=== PATIENT | male | born 1955 | race Caucasian/White ===

== ENCOUNTER 2019-02-12 06:46 | Day surgery (SDC) | payer OTHER ==
[~2019-02-12] VITALS: Ht 167.6 cm; Wt 64.9 kg
[~2019-02-12 06:46] MED LIST: ALPR1 PO; LISI20 PO; METO50 PO
--- NOTE | 2019-02-12 11:13 | NUR ---
PATIENT EDUCATED TO TAKE HIS BLOOD PRESSURE TONIGHT PER DR MEDELLIN AND RESUME B/P MEDICATIONS PRESCRIBED. PATIENT STATES UNDERSTANDING ABOUT WHEN TO BE RE-EVALUATED OR SEEN IN ER.
== END 2019-02-12 11:15 | disposition home or self-care (01) ==
LOC: ORSCMMR 06:46 → ORD 08:45 → ORSCMMR 11:15
PROVIDERS: Surgery
PROC: 05HM33Z Insertion of Infusion Device into Right Internal Jugular Vein, Percutaneous Approach (ICD-10-PCS; principal; 2019-02-12 08:45)
PROC: B5131ZA Fluoroscopy of Right Jugular Veins using Low Osmolar Contrast, Guidance (ICD-10-PCS; principal; 2019-02-12 08:45)
DX: C20 Malignant neoplasm of rectum (principal); I10 Essential (primary) hypertension; F17.210 Nicotine dependence, cigarettes, uncomplicated; Z79.899 Other long term (current) drug therapy
CPT/HCPCS: 77001; 82947; C1788; J0690; J1100; J1642; J2250; J2405; J2704; J3010; J7120

== ENCOUNTER 2019-02-14 10:34 | Day surgery (SDC) | payer OTHER | END 2019-02-14 22:40 | disposition home or self-care (01) | LOC: US 10:34 | DX: J90 Pleural effusion, not elsewhere classified (principal); C20 Malignant neoplasm of rectum | CPT/HCPCS: 76604 ==

== ENCOUNTER 2019-03-01 08:09 | Day surgery (SDC) | payer OTHER ==
--- NOTE | 2019-03-01 10:23 | NUR ---
DAY SURGERY RN | PATIENT INTO DAY SURGERY BLOOD PRESSURE IS HIGH. THIS "IS NORMAL AFTER PROCEDURES" PER PATIENT AND FAMILY. DENIES PAIN, NAUSEA, OR SYMPTOMATIC ISSUES. A/O. SITE C/D/I. DENIES DIFFICULTY BREATHING. LUNG SOUNDS CLEAR.
--- NOTE | 2019-03-01 12:00 | NUR ---
"DAY SURGERY RN | DISHCARGED VSS. A/O. DENIES PAIN AND NAUSEA. SITE C/D/I. DISCHARGE INSTRUCTIONS GIVEN. NO ISSUES. PATIENT WALKED SELF OUT."
== END 2019-03-01 23:31 | disposition home or self-care (01) ==
LOC: CT 08:09
DX: J84.10 Pulmonary fibrosis, unspecified (principal); C20 Malignant neoplasm of rectum; C77.5 Secondary and unspecified malignant neoplasm of intrapelvic lymph nodes; C77.1 Secondary and unspecified malignant neoplasm of intrathoracic lymph nodes
CPT/HCPCS: 32405; 77012; 88305; 88341; 88342

== ENCOUNTER 2021-02-23 06:51 | Day surgery (SDC) | payer MEDICARE ==
[~2021-02-23] VITALS: Ht 169 cm; Wt 69.5 kg
[~2021-02-23 06:51] MED LIST changes: +GABA300 PO; +OMEP20ER PO; +ONDA4ODT MM; +OXYC5 PO; +POTA10T PO; +REGLAN10 M7 PO; +TRAM50 PO
--- NOTE | 2021-02-23 07:44 | NUR ---
Ambulatory in Day Surgery History, Chart, Medications and Allergies reviewed before start of procedure.Patient confirms NPO status and agrees with scheduled surgery. Patient reports completing Chlorhexadine shower X2 prior to admission to hospital.Surgical site prepped with 2% Chlorhexidine cloth wipe.
--- NOTE | 2021-02-23 10:38 | NUR ---
Dressing to procedure site clean, dry, intact with no visible drainage, swelling, erythema or bruising noted.PT DENIES N/V. TOLERATING PO. B/P HIGH. WILL CONT TO MONITOR AFTER GIVEN TIME TO BE CALM WITH RELAXING BREATHS.
--- NOTE | 2021-02-23 11:06 | NUR ---
Patient up to Ambulate independently. Gait steady. Discharge instructions reviewed with patient. Patient verbalizes understanding. Copy given to patient to take home. Dressing to procedure site clean, dry, intact with no visible drainage, swelling, erythema or bruising noted. Patient States Post-Procedure ride home has been arranged. Discharged via wheelchair to private car for ride home. PT STATES HIS B/P IS ALWAYS REALLY HIGH WHEN AT THE DOCTORS OFFICE OR HOSPITAL. PRACTICED RELAXATION BREATHING. PT DID NOT WANT TREATMENT FOR HIGH B/P. ALL BELONINGS RETURNED TO PATIENT ALONG WITH ICE PACK AND MEDIPORT INFO.
== END 2021-02-23 11:00 | disposition home or self-care (01) ==
LOC: ORSCMMR 06:51 → ORD 08:30 → ORSCMMR 08:30
PROVIDERS: Surgery
PROC: 05HM33Z Insertion of Infusion Device into Right Internal Jugular Vein, Percutaneous Approach (ICD-10-PCS; principal; 2021-02-23 08:30)
PROC: B543ZZA Ultrasonography of Right Jugular Veins, Guidance (ICD-10-PCS; principal; 2021-02-23 08:30)
DX: C20 Malignant neoplasm of rectum (principal); C78.7 Secondary malignant neoplasm of liver and intrahepatic bile duct; I10 Essential (primary) hypertension; Z87.891 Personal history of nicotine dependence; Z79.899 Other long term (current) drug therapy
CPT/HCPCS: 36415; 77001; 85610; 85730; C1788; J0360; J0690; J1100; J1642; J1885; J2370; J2405; J2704; J3010; J7120

== ENCOUNTER 2021-05-11 14:25 | Emergency (ER) | payer MEDICARE ==
[~2021-05-11] VITALS: Ht 170.2 cm; Wt 68.0 kg
[2021-05-11 15:03] LABS: Hematocrit 36.6 % (37.0-53.0); Hemoglobin 12.7 g/dL (13.5-17.5); Mean Corpuscular HGB 31.8 pg (26.0-34.0); Mean Corpuscular HGB Conc 34.7 g/dL (31.5-36.5); Mean Corpuscular Volume 92 fL (80-100); Mean Platelet Volume 9.8 fL (9.1-12.4); NRBC Auto 0.7 /100 WBC (0.0-0.2); Platelet Count 138 K/mm3 (150-400); RDW Coefficient Variation 17.3 % (11.7-14.2); White Blood Cell Count 15.11 K/mm3 (4.00-11.30)
[2021-05-11 15:39] LABS: Alanine Aminotransfer (ALT/SGP 19 U/L (12-78); Albumin, Blood 3.2 g/dL (3.4-5.0); Albumin/Globulin Ratio 0.8 (0.8-1.8); Alk Phos 162 U/L (50-136); Anion Gap 6 mmol/L (6-16); Aspartate Aminotrans (AST/SGOT 21 U/L (12-37); Bilirubin, Total 0.5 mg/dL (0.1-1.0); Blood Urea Nitrogen 14 mg/dL (8-24); Bun/Creatinine Ratio 12.3 (12.0-20.0); CO2, Blood 27 mmol/L (21-32); Calcium, Blood 8.7 mg/dL (8.5-10.1); Chloride, Blood 109 mmol/L (98-108); Creatinine, Blood 1.14 mg/dL (0.60-1.20); Glomerular Filtration Rate >60 (60-); Glucose, Blood 105 mg/dL (70-99); Potassium, Blood 3.4 mmol/L (3.5-5.5); Sodium, Blood 142 mmol/L (136-145); Total Protein, Blood 7.2 g/dL (6.4-8.2); Troponin I <0.015 ng/mL (0.000-0.040)
[2021-05-11 16:00] LABS: BAND PERCENT MAN 12 % (0-8); BASOPHILS PERCENT MAN 0 % (0-2); EOSINOPHILS ABSOLUTE MAN 0.15 K/mm3 (0.00-0.68); EOSINOPHILS PERCENT MAN 1 % (0-6); LYMPHOCYTES PERCENT MAN 6 % (21-46); METAMYELOCYTE PERCENT MAN 4 % (0-0); MONOCYTES ABSOLUTE MAN 1.05 K/mm3 (0.16-1.47); MONOCYTES PERCENT MAN 7 % (4-13); MYELOCYTE PERCENT MAN 2 % (0-0); NEUTROPHILS ABSOLUTE MAN 12.08 K/mm3 (1.96-9.15); SEG NEUTROPHILS PERCENT MAN 68 % (41-73); TOTAL CELLS COUNTED 100
[2021-05-11] MEDS ORDERED: LOSA50 PO (16:43)
[2021-05-11] MEDS ORDERED: CATAPRES0.1 MG PO (16:44)
== END 2021-05-11 18:10 | disposition home or self-care (01) ==
LOC: ER 14:25
PROVIDERS: Physician Assistant
DX: R07.89 Other chest pain (principal); T45.8X5A Adverse effect of other primarily systemic and hematological agents, initial encounter; I10 Essential (primary) hypertension; R91.8 Other nonspecific abnormal finding of lung field; Z79.899 Other long term (current) drug therapy
CPT/HCPCS: 36415; 71260; 80053; 83690; 83880; 84484; 85025; 93005; 93010; 99285-25; A9270; Q9967

== ENCOUNTER 2022-06-03 00:36 | Day surgery (SDC) | payer MEDICARE ==
[~2022-06-03 00:36] MED LIST changes: +CATAPRES0.1 MG PO; +LOSA50 PO
[2022-06-03] MEDS ORDERED: OMEP20ER PO (15:37)
[2022-06-03] MEDS ORDERED: VENL75ER (15:38)
[2022-06-03] MEDS ORDERED: BACL10 PO (15:39)
== END 2022-06-03 16:49 | disposition home or self-care (01) ==
LOC: ATC 00:36
DX: E83.42 Hypomagnesemia (principal); C20 Malignant neoplasm of rectum; K21.9 Gastro-esophageal reflux disease without esophagitis; F41.9 Anxiety disorder, unspecified; I10 Essential (primary) hypertension; C78.00 Secondary malignant neoplasm of unspecified lung; C78.7 Secondary malignant neoplasm of liver and intrahepatic bile duct
CPT/HCPCS: 96365; 96366; J1642; J3475